=== PATIENT | female | born 1975 | race Caucasian/White ===

== ENCOUNTER 2017-11-21 05:53 | Emergency (ER) | payer MEDICAID ==
[~2017-11-21] VITALS: Ht 165.1 cm; Wt 84.0 kg
[~2017-11-21 05:53] MED LIST: ALBU0.63 NEB; ALBU18HF2 INH; BUDE10.22 INH; MONT10TA21 PO; ONDA4TAB6 PO
[2017-11-21] MEDS ORDERED: AZIT-63 PO (08:34)
[2017-11-21 09:01] VITALS: BP 116/88
== END 2017-11-21 09:03 | disposition home or self-care (01) ==
LOC: ER 05:54
DX: J10.1 Influenza due to other identified influenza virus with other respiratory manifestations (principal); G43.909 Migraine, unspecified, not intractable, without status migrainosus; J45.909 Unspecified asthma, uncomplicated; F17.200 Nicotine dependence, unspecified, uncomplicated; Z87.442 Personal history of urinary calculi; Z90.49 Acquired absence of other specified parts of digestive tract; Z88.1 Allergy status to other antibiotic agents; Z88.0 Allergy status to penicillin; Z88.2 Allergy status to sulfonamides; Z79.899 Other long term (current) drug therapy
CPT/HCPCS: 71045; 99283

== ENCOUNTER 2018-10-02 05:48 | Emergency (ER) | payer MEDICAID ==
[~2018-10-02] VITALS: Ht 165.1 cm; Wt 77.0 kg
[2018-10-02 05:52] VITALS: BP 118/66
[2018-10-02] MEDS ORDERED: benzonatate 100mg capsule PO ONE (06:40)
[2018-10-02] MEDS ORDERED: ipratropium/albuterol 3ml nebule NEB ONE (06:40)
[2018-10-02] MEDS ORDERED: PRED20TA PO (07:00)
[2018-10-02] MEDS ORDERED: AZIT-63 PO (07:00)
[2018-10-02] MEDS ORDERED: BENZ-16 PO (07:00)
[2018-10-02] MEDS ORDERED: INHA1INH2 (07:00)
== END 2018-10-02 07:30 | disposition home or self-care (01) ==
LOC: ER 05:49
DX: J45.901 Unspecified asthma with (acute) exacerbation (principal); G43.909 Migraine, unspecified, not intractable, without status migrainosus; F17.200 Nicotine dependence, unspecified, uncomplicated; Z87.442 Personal history of urinary calculi; Z88.0 Allergy status to penicillin; Z88.1 Allergy status to other antibiotic agents; Z88.2 Allergy status to sulfonamides
CPT/HCPCS: 71046; 94640; 94760; 99284

== ENCOUNTER 2024-04-01 04:20 | Emergency (ER) | payer BC, MEDICAID ==
[~2024-04-01] VITALS: Ht 165.1 cm; Wt 100.0 kg
[~2024-04-01 04:20] MED LIST changes: +INHA1INH2; +MONT-47 PO; -MONT10TA21 PO
[2024-04-01] MEDS ORDERED: LEVO-65 PO (05:04)
[2024-04-01] MEDS: levoFLOXACIN 250mg tablet PO ONE (05:16)
[2024-04-01 05:22] VITALS: BP 119/52; PULSE 100; RESP 16; TEMP 99.5; O2SAT 94
== END 2024-04-01 05:28 | disposition home or self-care (01) ==
LOC: ER 04:20
DX: R05.9 Cough, unspecified (principal); R06.02 Shortness of breath; J45.909 Unspecified asthma, uncomplicated; Z87.442 Personal history of urinary calculi; Z90.49 Acquired absence of other specified parts of digestive tract; Z88.0 Allergy status to penicillin; Z88.8 Allergy status to other drugs, medicaments and biological substances; Z79.899 Other long term (current) drug therapy
CPT/HCPCS: 71045; 93005; 99283